=== PATIENT | female | born 2000 | race Caucasian/White ===

== ENCOUNTER → 2023-07-17 | Outpatient (CLI) | payer OTHER ==
[2023-07-18 11:49] LABS: Candida species (DNA Probe) Negative (NEGATIVE); G. vaginalis (DNA Probe) Negative (NEGATIVE); T. vaginalis (DNA Probe) Negative (NEGATIVE)
== END | disposition home or self-care (01) ==
LOC: LAB 14:37 → LAB SHORT 14:37
PROVIDERS: Advanced Practice Midwife
DX: N76.0 Acute vaginitis (principal)
CPT/HCPCS: 87480; 87510; 87660

== ENCOUNTER 2023-08-20 06:48 | Inpatient (IN) | payer OTHER ==
[~2023-08-20] VITALS: Ht 165.1 cm; Wt 85.0 kg
[2023-08-20] MEDS ORDERED: PRENATAL TABLE1 EAC2 PO (07:07)
[2023-08-20 07:58] LABS: BASOPHILS ABSOLUTE AUTO 0.03 K/mm3 (0.00-0.23); BASOPHILS PERCENT AUTO 0 % (0-2); EOSINOPHILS ABSOLUTE AUTO 0.05 K/mm3 (0.00-0.68); EOSINOPHILS PERCENT AUTO 1 % (0-6); Hemoglobin 8.2 g/dL (11.5-16.0); IMMATURE GRAN ABSOLUTE AUTO 0.18 K/mm3 (0.00-0.10); IMMATURE GRAN PERCENT AUTO 2 % (0-1); LYMPHOCYTES ABSOLUTE AUTO 1.94 K/mm3 (0.84-5.20); LYMPHOCYTES PERCENT AUTO 24 % (21-46); MONOCYTES PERCENT AUTO 8 % (4-13); Mean Corpuscular HGB 20.6 pg (26.0-34.0); Mean Corpuscular HGB Conc 30.4 g/dL (31.5-36.5); Mean Corpuscular Volume 68 fL (80-100); Mean Platelet Volume 10.8 fL (9.1-12.4); NEUTROPHILS ABSOLUTE AUTO 5.21 K/mm3 (1.96-9.15); NEUTROPHILS PERCENT AUTO 65 % (41-73); Platelet Count 271 K/mm3 (150-400); RDW Coefficient Variation 15.9 % (11.7-14.2); RDW Standard Deviation 38.3 fL (35.1-46.3); Red Blood Cell Count 3.98 M/mm3 (3.80-5.20); White Blood Cell Count 8.01 K/mm3 (4.00-11.30)
[2023-08-20 08:25] VITALS: BP 123/58
[2023-08-20] MEDS ORDERED: FERSU300 PO (09:57)
[2023-08-20 12:10] VITALS: BP 118/66
[2023-08-20 18:50] VITALS: BP 121/58
[2023-08-20 19:58] VITALS: BP 127/57
[2023-08-20 21:57] VITALS: BP 139/60
[2023-08-20 22:58] VITALS: BP 121/56
[2023-08-21] VITALS (36 sets, daily range): BP systolic 98–146; BP diastolic 53–77
[2023-08-22 00:17] VITALS: BP 136/60
[2023-08-22 05:59] VITALS: BP 116/54
[2023-08-22 06:01] LABS: BASOPHILS ABSOLUTE AUTO 0.05 K/mm3 (0.00-0.23); BASOPHILS PERCENT AUTO 0 % (0-2); EOSINOPHILS ABSOLUTE AUTO 0.14 K/mm3 (0.00-0.68); EOSINOPHILS PERCENT AUTO 1 % (0-6); Hematocrit 24.9 % (33.0-51.0); Hemoglobin 7.6 g/dL (11.5-16.0); IMMATURE GRAN PERCENT AUTO 1 % (0-1); LYMPHOCYTES ABSOLUTE AUTO 2.41 K/mm3 (0.84-5.20); LYMPHOCYTES PERCENT AUTO 18 % (21-46); MONOCYTES ABSOLUTE AUTO 0.83 K/mm3 (0.16-1.47); MONOCYTES PERCENT AUTO 6 % (4-13); Mean Corpuscular HGB 20.8 pg (26.0-34.0); Mean Corpuscular HGB Conc 30.5 g/dL (31.5-36.5); Mean Corpuscular Volume 68 fL (80-100); Mean Platelet Volume 10.9 fL (9.1-12.4); NEUTROPHILS ABSOLUTE AUTO 9.62 K/mm3 (1.96-9.15); NEUTROPHILS PERCENT AUTO 73 % (41-73); Platelet Count 253 K/mm3 (150-400); RDW Coefficient Variation 15.9 % (11.7-14.2); RDW Standard Deviation 37.7 fL (35.1-46.3); Red Blood Cell Count 3.66 M/mm3 (3.80-5.20); White Blood Cell Count 13.15 K/mm3 (4.00-11.30)
[2023-08-22 08:38] VITALS: BP 127/57
[2023-08-22] MEDS ORDERED: ACET500 PO (09:28)
--- NOTE | 2023-08-22 10:23 | NUR ---
DISCHARGE TEACHING REVIEWED WITH PATIENT AND SO AT BEDSIDE. PATIENT VERBALIZED UNDERSTANDING, DENIED ANY FURTHER QUESTIONS OR CONCERNS AT THIS TIME. IV OUT. DC VSS. PER PROVIDER PATIENT IS TO TAKE PO IRON SUPPLEMENT QOD AND TYLENOL PRN FOR PAIN. PATIENT WALKED OUT WITH AND SO AT HER SIDE.
== END 2023-08-22 10:05 | disposition home or self-care (01) | DRG 807 ==
LOC: BC 06:48
PROVIDERS: ADMIT Obstetrics & Gynecology
PROC: 10E0XZZ Delivery of Products of Conception, External Approach (ICD-10-PCS; principal; 2023-08-21)
PROC: 10907ZC Drainage of Amniotic Fluid, Therapeutic from Products of Conception, Via Natural or Artificial Opening (ICD-10-PCS; 2023-08-21)
PROC: 3E0DXGC Introduction of Other Therapeutic Substance into Mouth and Pharynx, External Approach (ICD-10-PCS; 2023-08-21)
PROC: 3E0R3BZ Introduction of Anesthetic Agent into Spinal Canal, Percutaneous Approach (ICD-10-PCS; 2023-08-21)
PROC: 00HU33Z Insertion of Infusion Device into Spinal Canal, Percutaneous Approach (ICD-10-PCS; 2023-08-21)
DX: O99.02 Anemia complicating childbirth (principal); Z37.0 Single live birth; O32.0XX0 Maternal care for unstable lie, not applicable or unspecified; Z3A.39 39 weeks gestation of pregnancy; F41.9 Anxiety disorder, unspecified; O99.344 Other mental disorders complicating childbirth; F32.A Depression, unspecified; O71.82 Other specified trauma to perineum and vulva; Z88.8 Allergy status to other drugs, medicaments and biological substances; Z79.899 Other long term (current) drug therapy
CPT/HCPCS: 36415; 51702; 85025; 86850; 86900; 86901; 86923; A9270; J2590; J2916; J3010; J7120

== ENCOUNTER 2024-05-28 15:33 | Emergency (ER) | payer SELFPAY ==
[~2024-05-28] VITALS: Ht 167.6 cm; Wt 65.8 kg
[~2024-05-28 15:33] MED LIST: ACET500 PO; FERSU300 PO; PRENATAL TABLE1 EAC2 PO
[2024-05-28 16:00] VITALS: BP 130/75
[2024-05-28] MEDS ORDERED: Lidocaine 2% Viscous Soln 15 ML UDC PO ONE (16:40)
[2024-05-28] MEDS ORDERED: Acetaminophen 500 MG Tab PO ONE (16:40)
== END 2024-05-28 17:13 | disposition home or self-care (01) ==
LOC: ER 15:33
DX: J02.9 Acute pharyngitis, unspecified (principal); F17.200 Nicotine dependence, unspecified, uncomplicated; Z88.6 Allergy status to analgesic agent; Z79.899 Other long term (current) drug therapy
CPT/HCPCS: 87430; 99283; A9270